=== PATIENT | male | born 1940 | race Caucasian/White ===

== ENCOUNTER 2017-08-29 12:07 | Day surgery (SDC) | payer MEDICARE ==
[~2017-08-29 12:07] MED LIST: B CO1CAP5 PO; METO-408 PO; RENVELA PO
[2017-08-29] MEDS ORDERED: SODIUM CHLORIDE 0.9% 1000ML 1,000 ML IV ONE (15:23)
== END 2017-08-29 15:20 | disposition home or self-care (01) ==
LOC: SDC 12:07
PROVIDERS: ATTEND Internal Medicine Hematology & Oncology
DX: D69.6 Thrombocytopenia, unspecified (principal)
CPT/HCPCS: 36415; 36430; 86850; 86900; 86901; J7030; P9034

== ENCOUNTER 2017-10-10 17:45 | Observation (INO) | payer MEDICARE ==
[~2017-10-10] VITALS: Ht 177.8 cm; Wt 70.8 kg
[2017-10-10 18:39] LABS: HEMATOCRIT 20.3 % (42-54)
[2017-10-11] VITALS (8 sets, daily range): BP systolic 122–167; BP diastolic 70–92
[2017-10-11] MEDS ORDERED: AMIL5TAB8 PO (06:33)
[2017-10-11] MEDS ORDERED: AMLODIPIN (06:38)
[2017-10-11] MEDS ORDERED: AMLO10TA2 PO (06:38)
[2017-10-11 07:52] LABS: HEMATOCRIT 24.2 % (42-54)
[2017-10-11] MEDS ORDERED: SODIUM CHLORIDE 0.9% 1000ML 1,000 ML IV PRN (15:00)
[2017-10-11] MEDS ORDERED: ALBUMIN (HUMAN) 25% 100 ML IV PRN (15:00)
[2017-10-11] MEDS ORDERED: EPOETIN ALFA 3,000 UNIT/ML ML SQ NR (15:00)
[2017-10-11] MEDS ORDERED: 0.9% SODIUM CHLORIDE 250 ML IV BAG IV PRN (15:00)
[2017-10-11] MEDS ORDERED: HEPARIN SODIUM 5000UNIT/ML 1ML VIAL IJ PRN (15:00)
== END 2017-10-11 18:35 | disposition home or self-care (01) ==
LOC: EDH 17:45 → EDHIP 17:46 → 3DH 10-11 01:36
PROVIDERS: ADMIT Internal Medicine Hematology & Oncology; ATTEND Internal Medicine Hematology & Oncology
DX: D64.9 Anemia, unspecified (principal); I48.91 Unspecified atrial fibrillation; C90.00 Multiple myeloma not having achieved remission; I12.0 Hypertensive chronic kidney disease with stage 5 chronic kidney disease or end stage renal disease; N18.6 End stage renal disease; I25.10 Atherosclerotic heart disease of native coronary artery without angina pectoris; Z87.442 Personal history of urinary calculi; Z99.2 Dependence on renal dialysis
CPT/HCPCS: 36415 ×2; 36430 ×2; 86850; 86900; 86901; 86922 ×2; 99285; G0378 ×25; P9016 ×2; 90935; G0257

== ENCOUNTER 2017-10-20 09:49 | Day surgery (SDC) | payer MEDICARE ==
[~2017-10-20 09:49] MED LIST changes: +AMLO10TA2 PO
[2017-10-20] MEDS ORDERED: DEXAMETHASONE SOD PHOSPHATE 10MG/ML 1ML VIAL ONE (10:28)
[2017-10-20] MEDS ORDERED: SODIUM CHLORIDE 0.9% 1000ML 1,000 ML IV ONE (10:28)
[2017-10-20] MEDS ORDERED: DiphenhydrAMINE HCL 50 MG/ML VIAL ONE (10:28)
[2017-10-20 12:35] VITALS: BP 134/81
[2017-10-20 12:45] VITALS: BP 138/68
== END 2017-10-20 13:25 | disposition home or self-care (01) ==
LOC: DAH 09:49
PROVIDERS: ATTEND Internal Medicine Hematology & Oncology
DX: D69.6 Thrombocytopenia, unspecified (principal); C90.00 Multiple myeloma not having achieved remission; D47.2 Monoclonal gammopathy; I12.9 Hypertensive chronic kidney disease with stage 1 through stage 4 chronic kidney disease, or unspecified chronic kidney disease; N18.9 Chronic kidney disease, unspecified; M48.00 Spinal stenosis, site unspecified; I25.10 Atherosclerotic heart disease of native coronary artery without angina pectoris; I48.91 Unspecified atrial fibrillation; K22.0 Achalasia of cardia; Z87.442 Personal history of urinary calculi; Z79.82 Long term (current) use of aspirin; Z79.899 Other long term (current) drug therapy; Z80.1 Family history of malignant neoplasm of trachea, bronchus and lung; Z80.8 Family history of malignant neoplasm of other organs or systems; Z95.0 Presence of cardiac pacemaker
CPT/HCPCS: 36430; 36415; 86850; 86900; 86901; A4606; J1100; J1200; J7030; P9034

== ENCOUNTER → 2017-11-17 | Outpatient (CLI) | payer MEDICARE ==
[~2017-11-17] MED LIST changes: +AMLO5TAB2 PO; +DOXY100T2 PO; +FLUT15.88 NS; +FOLI0.8T22 PO; +FURO20TA6 PO; +GUAI5SYR4 PO; +LORA10TA7 PO; +MIRT7.5T11 PO; +SEVE800 PO; +SEVE800T7 PO
== END | disposition home or self-care (01) ==
LOC: SHCH 11:06
PROVIDERS: ATTEND Internal Medicine Cardiovascular Disease
DX: I34.0 Nonrheumatic mitral (valve) insufficiency (principal); Z95.0 Presence of cardiac pacemaker
CPT/HCPCS: 93306

== ENCOUNTER 2017-12-17 08:57 | Observation (INO) | payer MEDICARE ==
[2017-12-15 09:22] LABS: BASOPHILS % (AUTO) 0.2 % (0.0-5.0); EOSINOPHILS % (AUTO) 5.5 % (0.0-8.0); HEMATOCRIT 24.7 % (42-54); LYMPHOCYTES % (AUTO) 25.9 % (21.0-51.0); MEAN CORPUSCULAR HEMOGLOBIN 36.4 pg (27.0-33.0); MEAN CORPUSCULAR HGB CONC 36.1 g/dL (32.0-36.0); MONOCYTES % (AUTO) 11.9 % (3.0-13.0); NEUTROPHILS % (AUTO) 56.5 % (40.0-77.0); PLATELET COUNT (AUTO) 53 K/uL (130-400); RED BLOOD CELL COUNT(AUTO) 2.44 MIL/uL (4.50-6.20); RED CELL DISTRIBUTION WIDTH 26.4 % (11.0-15.5); WHITE BLOOD COUNT (AUTO) 5.3 K/uL (4.8-10.8)
[2017-12-15 09:26] VITALS: BP 155/80
[2017-12-15 09:32] LABS: INR 1.09 (0.85-1.15); PARTIAL THROMBOPLASTIN TIME 26.4 SEC (26.3-35.5); POTASSIUM 5.3 mmol/L (3.5-5.1); PROTHROMBIN TIME 11.4 SEC (9.6-11.6)
[2017-12-15 09:36] LABS: CREATININE 8.7 mg/dL (0.5-1.5)
[2017-12-17] VITALS (16 sets, daily range): BP systolic 126–157; BP diastolic 73–93
[~2017-12-17] VITALS: Ht 177.8 cm; Wt 71.5 kg
[~2017-12-17 08:57] MED LIST changes: -AMLO5TAB2 PO; +CEFAZOLIN SODIUM 1 GM VIAL IVP SCH; -DOXY100T2 PO; -FLUT15.88 NS; -FOLI0.8T22 PO; -FURO20TA6 PO; -GUAI5SYR4 PO; -LORA10TA7 PO; -MIRT7.5T11 PO; -SEVE800 PO; -SEVE800T7 PO
[2017-12-17 09:19] LABS: EOSINOPHILS % (AUTO) 5.2 % (0.0-8.0); HEMATOCRIT 25.5 % (42-54); LYMPHOCYTES % (AUTO) 25.7 % (21.0-51.0); MEAN CORPUSCULAR HEMOGLOBIN 36.6 pg (27.0-33.0); MEAN CORPUSCULAR HGB CONC 35.8 g/dL (32.0-36.0); MONOCYTES % (AUTO) 13.4 % (3.0-13.0); NEUTROPHILS % (AUTO) 55.7 % (40.0-77.0); PLATELET COUNT (AUTO) 53 K/uL (130-400); RED CELL DISTRIBUTION WIDTH 27.2 % (11.0-15.5); WHITE BLOOD COUNT (AUTO) 5.3 K/uL (4.8-10.8)
[2017-12-17] MEDS ORDERED: SODIUM CHLORIDE 0.9% 1000ML 1,000 ML IV ONE (10:53)
[2017-12-17] MEDS ORDERED: BUPIVACAINE/PF 0.25% 30ML VIAL IJ ONE (13:38)
[2017-12-17] MEDS ORDERED: MIDAZOLAM HCL 1 MG/ML 2ML VIAL ONE ×3 (13:38→14:30)
[2017-12-17] MEDS ORDERED: CEFAZOLIN 1GM / D5W 50ML 150 ML ONE (13:38)
[2017-12-17] MEDS ORDERED: LIDOCAINE HCL 1% MDV 50ML VIAL ONE (13:39)
[2017-12-17] MEDS ORDERED: MEPERIDINE-PF 50 MG/ML SYG ONE (13:39)
[2017-12-17] MEDS ORDERED: IOPAMIDOL-370 75 ML VIAL IV ONE (13:54)
[2017-12-17] MEDS ORDERED: MEPERIDINE-PF 25 MG/ML SYG ONE ×2 (14:05→14:30)
[2017-12-17] MEDS ORDERED: THROMBIN-JMI 5000 UNIT/VIAL TP ONE (14:20)
[2017-12-17] MEDS ORDERED: OCTYL 2-CYANOACRYLATE 1 EACH TP ONE (15:10)
[2017-12-17] MEDS ORDERED: ONDANSETRON HCL 4 MG/2 ML VIAL IV PRN (15:30)
[2017-12-17] MEDS ORDERED: ACETAMINOPHEN-CODEINE 300/30MG TAB PO PRN (15:30)
[2017-12-17] MEDS ORDERED: TEMAZEPAM 30 MG CAP PO PRN (15:30)
[2017-12-17] MEDS ORDERED: ACETAMINOPHEN 325 MG TAB PO PRN ×2 (15:30)
[2017-12-17] MEDS ORDERED: DOXY100T2 PO (15:34)
[2017-12-17] MEDS ORDERED: METOPROLOL SUCCINATE 12.5 MG PO SCH (21:00)
[2017-12-17] MEDS: ACETAMINOPHEN-CODEINE 300/30MG TAB PO PRN (21:04)
[2017-12-18 03:36] VITALS: BP 162/96
[2017-12-18 05:17] VITALS: BP 159/73
[2017-12-18 07:30] VITALS: BP 146/87
[2017-12-18] MEDS: CEFAZOLIN SODIUM 1 GM VIAL IVP SCH ×2 (08:20→08:25)
[2017-12-18] MEDS ORDERED: HOME MEDICATION 1 EACH PO SCH (09:00)
[2017-12-18] MEDS ORDERED: METOPROLOL TARTRATE 25 MG TAB PO SCH (09:00)
[2017-12-18] MEDS ORDERED: CEFAZOLIN 1GM / D5W 50ML 50 ML IV SCH (09:00)
[2017-12-18] MEDS ORDERED: AMLODIPINE BESYLATE 5 MG TAB PO SCH (09:00)
[2017-12-18] MEDS: ACETAMINOPHEN-CODEINE 300/30MG TAB PO PRN (09:21)
[2017-12-18 11:11] VITALS: BP 158/81
[2017-12-18 16:13] VITALS: BP 128/75
[2017-12-18] MEDS ORDERED: ALBUMIN (HUMAN) 25% 100 ML IV PRN (17:00)
[2017-12-18] MEDS ORDERED: SODIUM CHLORIDE 0.9% 1000ML 1,000 ML IV PRN (17:00)
[2017-12-18] MEDS ORDERED: 0.9% SODIUM CHLORIDE 250 ML IV BAG IV PRN (17:00)
[2017-12-18] MEDS ORDERED: EPOETIN ALFA 2,000 UNIT/ML VIAL SQ NR (17:00)
[2017-12-18] MEDS ORDERED: HEPARIN SODIUM 5000UNIT/ML 1ML VIAL IJ PRN (17:00)
[2017-12-18] MEDS ORDERED: EPOETIN ALFA 3,000 UNIT/ML ML SQ NR (18:00)
== END 2017-12-18 19:40 | disposition home or self-care (01) ==
LOC: DAH 08:57 → DAHIP 08:58 → DAH 08:58 → 2AH 16:02
PROVIDERS: ADMIT Internal Medicine Cardiovascular Disease; ATTEND Internal Medicine Cardiovascular Disease
DX: I45.9 Conduction disorder, unspecified (principal); I34.0 Nonrheumatic mitral (valve) insufficiency; I44.7 Left bundle-branch block, unspecified; N18.6 End stage renal disease; E87.5 Hyperkalemia; E78.5 Hyperlipidemia, unspecified; C90.00 Multiple myeloma not having achieved remission; M51.87 Other intervertebral disc disorders, lumbosacral region; I13.2 Hypertensive heart and chronic kidney disease with heart failure and with stage 5 chronic kidney disease, or end stage renal disease; I50.42 Chronic combined systolic (congestive) and diastolic (congestive) heart failure; Z86.718 Personal history of other venous thrombosis and embolism; Z99.2 Dependence on renal dialysis
CPT/HCPCS: 33225; 33229; 36415 ×2; 71046; 80048; 85025 ×2; 85610; 85730; 93005 ×3; 96372; 96374; A4218; A4606; C1769 ×2; C1894; C1900; C2621; G0378 ×35; J0690 ×2; J0884; J0885; J2175 ×2; J2250 ×2; J3490 ×3; J7030 ×2; Q9967; 90935; 99152; 99153; G0257

== ENCOUNTER 2018-02-19 02:52 | Inpatient (IN) | payer MEDICARE ==
[~2018-02-19] VITALS: Ht 177.8 cm; Wt 65.9 kg
[2018-02-19 00:05] VITALS: BP 146/86
[~2018-02-19 02:52] MED LIST changes: -CEFAZOLIN SODIUM 1 GM VIAL IVP SCH; +DOXY100T2 PO
[2018-02-19] MEDS ORDERED: IOHEXOL-350 75 ML VIAL IV ONE (03:08)
[2018-02-19] MEDS ORDERED: ASPIRIN 325 MG TABLET ONE (03:13)
[2018-02-19 03:31] LABS: B-TYPE NATRIURETIC PEPTIDE 2980 pg/mL (0-100)
[2018-02-19 03:32] LABS: CREATININE 9.2 mg/dL (0.5-1.5)
[2018-02-19 03:33] LABS: BASOPHILS % (AUTO) 0.3 % (0.0-5.0); EOSINOPHILS % (AUTO) 1.1 % (0.0-8.0); HEMATOCRIT 22.2 % (42-54); LYMPHOCYTES % (AUTO) 15.6 % (21.0-51.0); MEAN CORPUSCULAR HEMOGLOBIN 35.5 pg (27.0-33.0); MEAN CORPUSCULAR HGB CONC 34.4 g/dL (32.0-36.0); MEAN CORPUSCULAR VOLUME 103.3 fL (79-99); MONOCYTES % (AUTO) 10.2 % (3.0-13.0); NEUTROPHILS % (AUTO) 72.8 % (40.0-77.0); PLATELET COUNT (AUTO) 48 K/uL (130-400); RED BLOOD CELL COUNT(AUTO) 2.15 MIL/uL (4.50-6.20); RED CELL DISTRIBUTION WIDTH 23.4 % (11.0-15.5); WHITE BLOOD COUNT (AUTO) 6.6 K/uL (4.8-10.8)
[2018-02-19 03:35] LABS: INR 1.14 (0.85-1.15); PARTIAL THROMBOPLASTIN TIME 25.5 SEC (26.3-35.5); PROTHROMBIN TIME 11.9 SEC (9.6-11.6)
[2018-02-19 03:37] LABS: ALBUMIN 3.8 g/dL (3.5-5.0); BILIRUBIN,TOTAL 1.2 mg/dL (0.2-1.0); MAGNESIUM 2.1 mg/dL (1.80-2.40); POTASSIUM 5.2 mmol/L (3.5-5.1); TOTAL PROTEIN, SERUM 6.7 g/dL (6.0-8.3)
[2018-02-19] MEDS ORDERED: FUROSEMIDE 10 MG/ML 4ML VIAL ONE (05:24)
[2018-02-19 06:20] VITALS: BP 152/86
[2018-02-19] MEDS ORDERED: 0.9% SODIUM CHLORIDE 250 ML IV BAG IV PRN (07:45)
[2018-02-19] MEDS ORDERED: SODIUM CHLORIDE 0.9% 1000ML 1,000 ML IV PRN (07:45)
[2018-02-19] MEDS ORDERED: ALBUMIN (HUMAN) 25% 100 ML IV PRN (07:45)
[2018-02-19 08:00] VITALS: BP 152/90
[2018-02-19 12:00] VITALS: BP 146/91
[2018-02-19 16:00] VITALS: BP 144/77
[2018-02-19] MEDS: FUROSEMIDE 10 MG/ML 2ML VIAL IV SCH (18:15)
[2018-02-19] MEDS ORDERED: AMLO5TAB2 PO (18:41)
[2018-02-19] MEDS ORDERED: AMLO10TA2 PO (18:41)
[2018-02-19] MEDS ORDERED: SEVE800T7 PO (18:44)
[2018-02-19] MEDS ORDERED: LORA10TA7 PO (18:46)
[2018-02-19] MEDS ORDERED: GUAI5SYR4 PO (18:46)
[2018-02-19] MEDS ORDERED: FLUT15.88 NS (18:46)
[2018-02-19] MEDS ORDERED: FOLI0.8T22 PO (18:49)
[2018-02-19] MEDS ORDERED: METO-408 PO (18:49)
[2018-02-19] MEDS ORDERED: MIRT7.5T11 PO (18:49)
[2018-02-19 19:05] VITALS: BP 156/77
[2018-02-20] MEDS: FUROSEMIDE 10 MG/ML 2ML VIAL IV SCH ×2 (03:04→17:31)
[2018-02-20 04:05] VITALS: BP 144/78
[2018-02-20 05:32] LABS: MEAN CORPUSCULAR HEMOGLOBIN 36.5 pg (27.0-33.0); MEAN CORPUSCULAR HGB CONC 35.3 g/dL (32.0-36.0); MEAN CORPUSCULAR VOLUME 103.5 fL (79-99); PLATELET COUNT (AUTO) 35 K/uL (130-400); RED BLOOD CELL COUNT(AUTO) 1.89 MIL/uL (4.50-6.20); RED CELL DISTRIBUTION WIDTH 23.2 % (11.0-15.5); WHITE BLOOD COUNT (AUTO) 4.1 K/uL (4.8-10.8)
[2018-02-20 05:43] LABS: CREATININE 7.1 mg/dL (0.5-1.5); POTASSIUM 4.7 mmol/L (3.5-5.1)
[2018-02-20 06:13] LABS: HEMATOCRIT 19.6 % (42-54)
[2018-02-20 07:47] VITALS: BP 147/81
[2018-02-20] MEDS: ENOXAPARIN SODIUM 40 MG/0.4 ML SYRINGE SQ SCH (09:00)
[2018-02-20] MEDS: FAMOTIDINE 20MG TAB 20 MG TAB PO SCH (09:30)
[2018-02-20] MEDS ORDERED: GUAIFENESIN-CODEINE 5 ML SYRUP PO PRN (10:45)
[2018-02-20] MEDS ORDERED: NON-FORMULARY MEDICATION 1 EACH (Fluticasone Propionate 15.8 ML) NS PRN (10:45)
[2018-02-20 11:32] VITALS: BP 143/83
[2018-02-20 15:58] VITALS: BP 136/78
[2018-02-20] MEDS: AMLODIPINE BESYLATE 5 MG TAB PO SCH (17:16)
[2018-02-20] MEDS: SEVELAMER HCL 800 MG TABLET PO SCH ×2 (17:16→21:34)
[2018-02-20] MEDS: IPRATROPIUM/ALBUTEROL SULFATE 3 ML SOLUTION IH SCH ×2 (18:54→23:50)
[2018-02-20 19:51] VITALS: BP 157/88
[2018-02-20] MEDS: MIRTAZAPINE 15 MG TABLET PO SCH (21:34)
[2018-02-20] MEDS: FOLIC ACID/VITAMIN B COMP W-C 1 MG CAPSULE PO SCH (21:34)
[2018-02-20] MEDS: METOPROLOL TARTRATE 25 MG TAB PO SCH (21:34)
[2018-02-21] VITALS (7 sets, daily range): BP systolic 123–160; BP diastolic 75–93
[2018-02-21] MEDS: FUROSEMIDE 10 MG/ML 2ML VIAL IV SCH (03:15)
[2018-02-21 04:18] LABS: MEAN CORPUSCULAR HEMOGLOBIN 35.9 pg (27.0-33.0); MEAN CORPUSCULAR HGB CONC 34.6 g/dL (32.0-36.0); MEAN CORPUSCULAR VOLUME 103.8 fL (79-99); PLATELET COUNT (AUTO) 38 K/uL (130-400); RED BLOOD CELL COUNT(AUTO) 1.86 MIL/uL (4.50-6.20); RED CELL DISTRIBUTION WIDTH 23.6 % (11.0-15.5); WHITE BLOOD COUNT (AUTO) 4.7 K/uL (4.8-10.8)
[2018-02-21 04:28] LABS: HEMATOCRIT 19.3 % (42-54)
[2018-02-21 04:34] LABS: POTASSIUM 4.6 mmol/L (3.5-5.1)
[2018-02-21 04:36] LABS: CREATININE 9.5 mg/dL (0.5-1.5)
[2018-02-21] MEDS: IPRATROPIUM/ALBUTEROL SULFATE 3 ML SOLUTION IH SCH ×4 (06:00→23:33)
[2018-02-21 08:22] LABS: HEMATOCRIT 25.1 % (42-54)
[2018-02-21] MEDS: ENOXAPARIN SODIUM 40 MG/0.4 ML SYRINGE SQ SCH (09:00)
[2018-02-21] MEDS: FOLIC ACID/VITAMIN B COMP W-C 1 MG CAPSULE PO SCH ×2 (09:07→21:42)
[2018-02-21] MEDS: FAMOTIDINE 20MG TAB 20 MG TAB PO SCH (09:07)
[2018-02-21] MEDS: METOPROLOL TARTRATE 25 MG TAB PO SCH ×2 (09:07→21:43)
[2018-02-21] MEDS: AMLODIPINE BESYLATE 5 MG TAB PO SCH ×2 (09:07→17:45)
[2018-02-21] MEDS: SEVELAMER HCL 800 MG TABLET PO SCH ×2 (09:07→17:46)
[2018-02-21] MEDS: LORATADINE 10 MG TABLET PO SCH (09:07)
[2018-02-21] MEDS: FUROSEMIDE 20 MG TABLET PO SCH (17:46)
[2018-02-21] MEDS: MIRTAZAPINE 15 MG TABLET PO SCH (21:43)
[2018-02-22] MEDS ORDERED: LORAZEPAM 0.5 MG TABLET ONE (00:29)
[2018-02-22] MEDS ORDERED: LORAZEPAM 0.5 MG TABLET PO ONE (00:30)
[2018-02-22 05:06] LABS: HEMATOCRIT 24.7 % (42-54); MEAN CORPUSCULAR HEMOGLOBIN 35.8 pg (27.0-33.0); MEAN CORPUSCULAR HGB CONC 35.8 g/dL (32.0-36.0); PLATELET COUNT (AUTO) 41 K/uL (130-400); RED BLOOD CELL COUNT(AUTO) 2.47 MIL/uL (4.50-6.20); RED CELL DISTRIBUTION WIDTH 22.7 % (11.0-15.5); WHITE BLOOD COUNT (AUTO) 5.2 K/uL (4.8-10.8)
[2018-02-22 05:38] LABS: ALBUMIN 3.3 g/dL (3.5-5.0); BILIRUBIN,TOTAL 1.6 mg/dL (0.2-1.0); CREATININE 7.6 mg/dL (0.5-1.5); POTASSIUM 4.4 mmol/L (3.5-5.1); TOTAL PROTEIN, SERUM 6.2 g/dL (6.0-8.3)
[2018-02-22 06:00] VITALS: BP 156/78
[2018-02-22] MEDS: IPRATROPIUM/ALBUTEROL SULFATE 3 ML SOLUTION IH SCH ×4 (06:54→23:13)
[2018-02-22 08:06] VITALS: BP 155/78
[2018-02-22] MEDS: SEVELAMER HCL 800 MG TABLET PO SCH ×3 (08:59→16:20)
[2018-02-22] MEDS: FOLIC ACID/VITAMIN B COMP W-C 1 MG CAPSULE PO SCH ×2 (08:59→20:40)
[2018-02-22] MEDS: METOPROLOL TARTRATE 25 MG TAB PO SCH ×2 (08:59→20:40)
[2018-02-22] MEDS: LORATADINE 10 MG TABLET PO SCH (09:00)
[2018-02-22] MEDS: AMLODIPINE BESYLATE 5 MG TAB PO SCH ×2 (09:00→16:20)
[2018-02-22] MEDS: FAMOTIDINE 20MG TAB 20 MG TAB PO SCH (09:00)
[2018-02-22] MEDS: FUROSEMIDE 20 MG TABLET PO SCH ×2 (09:00→16:20)
[2018-02-22 11:21] VITALS: BP 130/85
[2018-02-22 15:41] VITALS: BP 117/72
[2018-02-22 19:28] VITALS: BP 163/78
[2018-02-22] MEDS ORDERED: MAGNESIUM 2GM PREMIX 50ML 50 ML IV PRN (20:15)
[2018-02-22] MEDS: MIRTAZAPINE 15 MG TABLET PO SCH (20:40)
[2018-02-22 21:56] VITALS: BP 146/84
[2018-02-23 03:28] VITALS: BP 147/86
[2018-02-23 04:33] LABS: HEMATOCRIT 24.4 % (42-54); MEAN CORPUSCULAR HEMOGLOBIN 35.2 pg (27.0-33.0); MEAN CORPUSCULAR HGB CONC 35.1 g/dL (32.0-36.0); MEAN CORPUSCULAR VOLUME 100.1 fL (79-99); PLATELET COUNT (AUTO) 44 K/uL (130-400); RED BLOOD CELL COUNT(AUTO) 2.43 MIL/uL (4.50-6.20); RED CELL DISTRIBUTION WIDTH 22.6 % (11.0-15.5); WHITE BLOOD COUNT (AUTO) 4.8 K/uL (4.8-10.8)
[2018-02-23 04:51] LABS: MAGNESIUM 2.2 mg/dL (1.80-2.40); POTASSIUM 4.6 mmol/L (3.5-5.1)
[2018-02-23 04:53] LABS: CREATININE 9.8 mg/dL (0.5-1.5)
[2018-02-23] MEDS: IPRATROPIUM/ALBUTEROL SULFATE 3 ML SOLUTION IH SCH ×2 (06:34→11:46)
[2018-02-23] MEDS: SEVELAMER HCL 800 MG TABLET PO SCH ×3 (07:04→17:23)
[2018-02-23 07:56] VITALS: BP 153/79
[2018-02-23] MEDS: FOLIC ACID/VITAMIN B COMP W-C 1 MG CAPSULE PO SCH (10:06)
[2018-02-23] MEDS: FUROSEMIDE 20 MG TABLET PO SCH ×2 (10:06→17:23)
[2018-02-23] MEDS: METOPROLOL TARTRATE 25 MG TAB PO SCH (10:06)
[2018-02-23] MEDS: FAMOTIDINE 20MG TAB 20 MG TAB PO SCH (10:06)
[2018-02-23] MEDS: LORATADINE 10 MG TABLET PO SCH (10:07)
[2018-02-23] MEDS: AMLODIPINE BESYLATE 5 MG TAB PO SCH ×2 (10:07→17:23)
[2018-02-23 11:00] VITALS: BP 150/82
[2018-02-23] MEDS ORDERED: SEVE800 PO (14:25)
[2018-02-23] MEDS ORDERED: FURO20TA6 PO (14:25)
[2018-02-23 16:00] VITALS: BP 153/59
== END 2018-02-23 18:00 | disposition home or self-care (01) | DRG 640 ==
LOC: EDH 02:52 → EDHIP 05:19 → 3CH 05:54
PROVIDERS: ADMIT Family Medicine; ATTEND Family Medicine
PROC: 30233N1 Transfusion of Nonautologous Red Blood Cells into Peripheral Vein, Percutaneous Approach (ICD-10-PCS; principal; 2018-02-19)
PROC: 5A1D70Z Performance of Urinary Filtration, Intermittent, Less than 6 Hours Per Day (ICD-10-PCS; 2018-02-19)
PROC: 5A1D70Z Performance of Urinary Filtration, Intermittent, Less than 6 Hours Per Day (ICD-10-PCS; 2018-02-21)
DX: E87.70 Fluid overload, unspecified (principal); N18.6 End stage renal disease; J90 Pleural effusion, not elsewhere classified; J98.11 Atelectasis; C90.00 Multiple myeloma not having achieved remission; I50.30 Unspecified diastolic (congestive) heart failure; I13.2 Hypertensive heart and chronic kidney disease with heart failure and with stage 5 chronic kidney disease, or end stage renal disease; R94.31 Abnormal electrocardiogram [ECG] [EKG]; Z99.2 Dependence on renal dialysis; I25.2 Old myocardial infarction; I25.10 Atherosclerotic heart disease of native coronary artery without angina pectoris; R09.89 Other specified symptoms and signs involving the circulatory and respiratory systems; Z86.718 Personal history of other venous thrombosis and embolism; D64.9 Anemia, unspecified; I51.7 Cardiomegaly; D63.8 Anemia in other chronic diseases classified elsewhere; Z79.82 Long term (current) use of aspirin; Z95.0 Presence of cardiac pacemaker; F41.9 Anxiety disorder, unspecified
CPT/HCPCS: 36415; 36430; 71045; 71275; 80048; 80053; 82550; 83735; 83880; 84484; 85014; 85018; 85025; 85027; 85610; 85730; 86850; 86900; 86901; 86922; 90935; 93005; 93306; 94640; 94664; 94760; 99291; J1940; J7030; P9016; Q9967

== ENCOUNTER → 2018-09-18 | Outpatient (CLI) | payer MEDICARE ==
[~2018-09-18] MED LIST changes: -AMLO10TA2 PO; +AMLO10TA7 PO; +AMLO5TAB9 PO; -B CO1CAP5 PO; -DOXY100T2 PO; +FLUT15.88 NS; +FOLI0.8T22 PO; +FURO20TA6 PO; +GUAI5SYR4 PO; +LORA10TA7 PO; +MIRT7.5T11 PO; -RENVELA PO; +SEVE800T7 PO
== END | disposition home or self-care (01) ==
LOC: RAH 10:46
PROVIDERS: ATTEND Internal Medicine
DX: N28.1 Cyst of kidney, acquired (principal); N13.2 Hydronephrosis with renal and ureteral calculous obstruction; R30.9 Painful micturition, unspecified
CPT/HCPCS: 76770

== ENCOUNTER → 2018-10-27 | Outpatient (CLI) | payer MEDICARE ==
[~2018-10-27] VITALS: Ht 172.7 cm; Wt 69.9 kg
[~2018-10-27] MED LIST changes: +CEFTRIAXONE SODIUM 1 GM IVP ONE; +GENTAMICIN 80 MG/NS 100 ML PB 100 ML IV PRN; +HYDR-3421 PO; +IRON1CAP32 PO; +LEVO250T59 PO
[2018-10-27 11:50] VITALS: BP 121/77
[2018-10-27 12:04] LABS: BASOPHILS % (AUTO) 0.2 % (0.0-5.0); EOSINOPHILS % (AUTO) 9.2 % (0.0-8.0); HEMATOCRIT 28.6 % (42-54); LYMPHOCYTES % (AUTO) 10.6 % (21.0-51.0); MEAN CORPUSCULAR HEMOGLOBIN 32.1 pg (27.0-33.0); MEAN CORPUSCULAR HGB CONC 34.6 g/dL (32.0-36.0); MEAN CORPUSCULAR VOLUME 92.8 fL (79-99); MONOCYTES % (AUTO) 8.8 % (3.0-13.0); NEUTROPHILS % (AUTO) 71.2 % (40.0-77.0); PLATELET COUNT (AUTO) 92 K/uL (130-400); RED BLOOD CELL COUNT(AUTO) 3.08 MIL/uL (4.50-6.20); RED CELL DISTRIBUTION WIDTH 21.4 % (11.0-15.5); WHITE BLOOD COUNT (AUTO) 8.1 K/uL (4.8-10.8)
--- NOTE | 2018-10-27 12:17 | NUR ---
EKG EKG REVIEWED BY OLIVER GALEANA TO PROCEED WITH SURGERY
[2018-10-27 12:18] LABS: INR 1.12 (0.85-1.15); PROTHROMBIN TIME 11.7 SEC (9.6-11.6)
[2018-10-27 12:20] LABS: POTASSIUM 4.3 mmol/L (3.5-5.1)
[2018-10-27 12:26] LABS: CREATININE 10.3 mg/dL (0.5-1.5)
[2018-10-27 13:31] LABS: APPEARANCE,URINE CLOUDY (CLEAR); BILIRUBIN,URINE NEGATIVE (NEGATIVE); COLOR,URINE YELLOW (YELLOW); GLUCOSE, URINE (UA) 250 mg/dL (NEGATIVE); KETONES,URINE NEGATIVE (NEGATIVE); LEUKOCYTE ESTERASE ,URINE LARGE (NEGATIVE); NITRATE,URINE NEGATIVE (NEGATIVE); OCCULT BLOOD,URINE MODERATE (NEGATIVE); PH,URINE 8.5 (5.0-8.0); PROTEIN,URINE 100 (NEGATIVE); UROBILINOGEN,URINE 0.2 mg/dL (0.2-1.0)
[2018-10-27 13:39] LABS: BACTERIA,URINE Moderate /HPF (None Seen); RBC,URINE 0-1 /HPF (0-1); SQUAMOUS EPITHELIAL CELL,UR 0-2 /HPF (0-2); WBC,URINE 51-100 /HPF (0-1)
--- NOTE | 2018-10-28 17:52 | NUR ---
ABNORMAL LABS REPORTED AND FAXED ABNORMAL LABS TO DR. CEDILLO OFFICE. PENDING CALL BACK
== END ==
LOC: DAH 10:00 → EDSTATUS 10-29 12:30
PROVIDERS: ATTEND Urology
DX: Z01.818 Encounter for other preprocedural examination (principal); N40.1 Benign prostatic hyperplasia with lower urinary tract symptoms; R33.9 Retention of urine, unspecified
CPT/HCPCS: 36415; 71045; 80048; 81001; 85025; 85610; 87077; 87088; 87186; 93005

== ENCOUNTER → 2018-11-13 | Outpatient (CLI) | payer MEDICARE ==
[~2018-11-13] MED LIST changes: -AMLO5TAB9 PO; -CEFTRIAXONE SODIUM 1 GM IVP ONE; -FLUT15.88 NS; -FOLI0.8T22 PO; -GENTAMICIN 80 MG/NS 100 ML PB 100 ML IV PRN; -GUAI5SYR4 PO; -LORA10TA7 PO; -MIRT7.5T11 PO
== END | disposition home or self-care (01) ==
LOC: SHCH 10:35
PROVIDERS: ATTEND Internal Medicine Cardiovascular Disease
DX: I08.3 Combined rheumatic disorders of mitral, aortic and tricuspid valves (principal); I11.9 Hypertensive heart disease without heart failure
CPT/HCPCS: 93306